=== PATIENT | male | born 2000 | race Caucasian/White ===

== ENCOUNTER 2021-08-10 23:23 | Emergency (ER) | payer OTHER ==
[~2021-08-10] VITALS: Ht 188 cm; Wt 86.3 kg
[2021-08-11 01:27] VITALS: BP 126/61
--- NOTE | 2021-08-11 01:37 | PHYS DOC ---
Past History Past Surgical History: No Surgical History Alcohol Use: Occasionally General Adult EDM: Chief Complaint: KNEE INJURY HPI: HPI: ".. I hurt my knee.. 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 Patient localizes pain to right collateral ligament. Distal neurovascular intact. Can do straight leg lift. Minimal swelling. Pain is exacerbated by running. No recent travel. No significant ill contacts. Up-to-date with vaccinations. Pt. normally follows at [place] Review of Systems: Review of Systems: Constitutional: Denies fever or chills Eyes: Denies change in visual acuity HENT: Denies nasal congestion or sore throat Respiratory: Denies cough or shortness of breath Cardiovascular: Denies chest pain or edema GI: Denies abdominal pain, nausea, vomiting, bloody stools or diarrhea : Denies dysuria Musculoskeletal: Complains of right knee pain Integument: Denies rash Neurologic: Denies headache, focal weakness or sensory changes Endocrine: Denies polyuria or polydipsia Lymphatic: Denies swollen glands Psychiatric: Denies depression or anxiety Family History: Family History: Noncontributory to presentation. Current Medications: Current Meds: See nursing for home meds Allergies: Allergies: Allergies Coded Allergies Type Severity Reaction Last Updated Verified No Known Drug Allergies 08/11/21 No Physical Exam: PE: Constitutional: Well developed, well nourished, no acute distress, non-toxic appearance. [] HENT: Normocephalic, atraumatic, bilateral external ears normal, oropharynx moist, no oral exudates, nose normal. [] Eyes: PERRLA, EOMI, conjunctiva normal, no discharge. [] Neck: Normal range of motion, no tenderness, supple, no stridor. [] Cardiovascular:Heart rate regular rhythm, no murmur [] Lungs & Thorax: Bilateral breath sounds clear to auscultation [] Abdomen: Bowel sounds normal, soft, no tenderness, no masses, no pulsatile masses. [] Skin: Warm, dry, no erythema, no rash. [] Back: No tenderness, no CVA tenderness. [] Extremities: No tenderness, no cyanosis, no clubbing, ROM intact, no edema. [] Except findings in right knee as per HPI Neurologic: Alert and oriented X 3, normal motor function, normal sensory function, no focal deficits noted. [] Psychologic: Affect normal, judgement normal, mood normal. [] Current Patient Data: Vital Signs: Vital Signs Date Time Temp Pulse Resp B/P (MAP) Pulse Ox O2 Delivery O2 Flow Rate FiO2 08/11/21 01:27 98.3 69 18 126/61 (82) 98 Room Air EKG: EKG: [] Radiology/Procedures: Radiology/Procedures: [][address] [address] IMAGING REPORT Signed PATIENT: BRUCE LUCAS ACCOUNT: [id number] : 2000 LOCATION: ER AGE: 21 SEX: M EXAM STATUS: REG ER ORD. PHYSICIAN: TRACY ADAMSON MD REASON: ONGOING right KNEE PAIN, worse tonight PROCEDURE: KNEE RIGHT 4V XR KNEE 4 VIEWS WITH PATELLA_RT History: Reason: ONGOING right KNEE PAIN, worse tonight / Spl. Instructions: / History: Technique: 4 views right knee Comparison: None. Findings: No dislocation. No acute fracture. No significant knee joint effusion. Impression: 1. No acute osseous abnormality. Electronically signed by: Jad Plunkett DO (08/11/2021 1:55 AM) [facility] DICTATED AND SIGNED BY: JAD PLUNKETT DO DATE: 08/11/21 0154 CC: TRACY ADAMSON MD; PCP,UNKNOWN ~MTH0 0 Heart Score: C/O Chest Pain: N/A Risk Factors: Risk Factors: DM, Current or recent (<one month) smoker, HTN, HLP, family history of CAD, obesity. Risk Scores: Score 0 - 3: 2.5% MACE over next 6 weeks - Discharge Home Score 4 - 6: 20.3% MACE over next 6 weeks - Admit for Clinical Observation Score 7 - 10: 72.7% MACE over next 6 weeks - Early Invasive Strategies Course & Med Decision Making: Course & Med Decision Making Pertinent Labs and Imaging studies reviewed. (See chart for details) Patient is ice packs as needed. Wear Jag wrap. Follow-up with [facility] and [facility]. If unable to get into Ortho at [place] consider follow-up at [facility] orthro [phone] Impression: 1. Rt. Lateral Collateral Ligament sprain/ strain [] Jaycee Disclaimer: Jaycee Disclaimer: This electronic medical record was generated, in whole or in part, using a voice recognition dictation system. Departure Departure: Referrals: PCP,UNKNOWN (PCP) Scripts Ibuprofen (IBUPROFEN) 400 Mg Tablet 600 MG PO QIDPRN PRN for pain, fever, #120 TAB Prov: TRACY ADAMSON MD 08/11/21 TRACY ADAMSON MD Aug 11, 2021 01:37
--- NOTE | 2021-08-11 01:58 | RAD ---
XR KNEE 4 VIEWS WITH PATELLA_RT History: Reason: ONGOING right KNEE PAIN, worse tonight / Spl. Instructions: / History: Technique: 4 views right knee Comparison: None. Findings: No dislocation. No acute fracture. No significant knee joint effusion. Impression: 1. No acute osseous abnormality. Electronically signed by: Jad Sesay DO (08/11/2021 1:55 AM) [facility]
[2021-08-11] MEDS ORDERED: IBUPROFEN 600 MG TABLET. PO ONE (02:30)
[2021-08-11] MEDS ORDERED: IBUP400T18 PO (02:34)
== END 2021-08-11 02:42 | disposition home or self-care (01) ==
LOC: ER 23:23
DX: S83.421A Sprain of lateral collateral ligament of right knee, initial encounter (principal); X50.9XXA Other and unspecified overexertion or strenuous movements or postures, initial encounter; Y93.89 Activity, other specified; Y92.89 Other specified places as the place of occurrence of the external cause; Y99.8 Other external cause status
CPT/HCPCS: 73564; 99283